=== PATIENT | male | born 2005 | race Caucasian/White ===

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

== ENCOUNTER → 2023-08-28 | Outpatient (CLI) | payer OTHER ==
[2023-09-02 08:34] LABS: APTIMA MEDIA TYPE Urine; C. TRACHOMATIS BY TMA Negative (Negative); N. GONORRHOEAE BY TMA Negative (Negative); SPECIMEN SOURCE Urine
== END ==
LOC: LAB 15:38 → LAB SHORT 15:38
PROVIDERS: Chiropractor
DX: Z72.51 High risk heterosexual behavior (principal)
CPT/HCPCS: 87491; 87591

== ENCOUNTER 2023-10-25 07:33 | Emergency (ER) | payer OTHER ==
[~2023-10-25] VITALS: Ht 180.3 cm; Wt 72.6 kg
[2023-10-25 09:42] VITALS: BP 140/55
== END 2023-10-25 09:43 | disposition home or self-care (01) ==
LOC: ER 07:33
DX: K40.90 Unilateral inguinal hernia, without obstruction or gangrene, not specified as recurrent (principal)
CPT/HCPCS: 99283

== ENCOUNTER 2024-06-10 06:20 | Day surgery (SDC) | payer OTHER ==
[~2024-06-10] VITALS: Ht 177.8 cm; Wt 78.5 kg
[2024-06-10] VITALS (14 sets, daily range): BP systolic 128–181; BP diastolic 53–106
[~2024-06-10 06:20] MED LIST changes: +Bupivacaine 0.5% HCl 5 MG/ML 30MLVIAL ONE
[2024-06-10] MEDS ORDERED: CeFAZolin Sodium 2,000 MG in NS 100 ML IV SCH (06:25)
[2024-06-10] MEDS ORDERED: Lactated Ringer's 1,000 ML IV SCH (06:25)
--- NOTE | 2024-06-10 06:56 | NUR ---
History, Chart, Medications and Allergies reviewed before start of procedure. Lungs clear T/O to Auscultation. Pre-Op teaching done. Pt verbalizes understanding. Patient States Post-Procedure ride home has been arranged. Patient reports completing Chlorhexadine shower X2 prior to admission to hospital. Patient confirms NPO status and agrees with scheduled surgery.
[2024-06-10] MEDS ORDERED: propofoL 20 ML IV ONE (07:08)
[2024-06-10] MEDS ORDERED: FentaNYL Citrate 50 MCG/ML 2 ML Injection ONE ×2 (07:09→09:28)
[2024-06-10] MEDS ORDERED: Midazolam HCl 1MG / ML 2ML Vial ONE (07:09)
[2024-06-10] MEDS ORDERED: Bupivacaine 0.5% HCl 5 MG/ML 30MLVIAL ONE (07:14)
[2024-06-10] MEDS ORDERED: Ketorolac Tromethamine 30mg Vial ONE (07:31)
[2024-06-10] MEDS ORDERED: Ondansetron HCl 2 MG / ML 2ML Vial ONE ×2 (07:31→09:22)
[2024-06-10] MEDS ORDERED: Dexamethasone Sod Phos 10 MG/ML 1ML VIAL ONE (07:31)
[2024-06-10] MEDS ORDERED: Rocuronium Bromide 10 MG/ML 5ML Injection IV ONE (08:54)
[2024-06-10] MEDS ORDERED: Labetalol HCL 5 MG/ML 4ML Injection (Single Dose) ONE (08:54)
[2024-06-10] MEDS ORDERED: Sugammadex Sodium 200 MG/2ML SDV (100 MG/ML) ONE (08:55)
[2024-06-10] MEDS ORDERED: OxyCODONE 5 mg/Acetamin 325 mg TABLET PO PRN (09:20)
--- NOTE | 2024-06-10 09:46 | NUR ---
PT TO DAY SURGERY STEP DOWN FROM PACU WITH HERNIA REPAIR; BEDSIDE REPORT RECEIVED. PT IS AWAKE, ALERT AND ORIENTED; ABLE TO MOVE SELF IN BED. VSS. AFEBRILE. PT C/O NAUSEA. PT HAS 3 ABD INCISIONS THAT ARE CLOSED WITH EXOFIN AND ARE C/D/I. COLD WASHCLOTH TO PT FOREHEAD AND LIGHTS DIMMED.
[2024-06-10] MEDS ORDERED: Prochlorperazine Edisylate 10 mg Vial ONE (09:50)
--- NOTE | 2024-06-10 10:03 | NUR ---
PT RESTING, FEELING LESS NAUSEATED. INCISIONS REMAIN C/D/I. PT DECLINES PO FLUIDS.
--- NOTE | 2024-06-10 10:06 | NUR ---
ICE PACK GIVEN TO PT
--- NOTE | 2024-06-10 10:50 | NUR ---
PT AWAKE, TOLERATING PO FLUIDS AND FEELING WELL. DECLINES PAIN MEDICATION. Discharge instructions reviewed with patient. Patient verbalizes understanding. Copy given to patient to take home. Patient States Post-Procedure ride home has been arranged.
--- NOTE | 2024-06-10 11:09 | NUR ---
Patient up to Ambulate independently. Gait steady. Discharged via wheelchair to private car for ride home.
== END 2024-06-10 11:11 | disposition home or self-care (01) ==
LOC: ORSCMMR 06:20
PROVIDERS: Surgery
PROC: 0YU54JZ Supplement Right Inguinal Region with Synthetic Substitute, Percutaneous Endoscopic Approach (ICD-10-PCS; principal; 2024-06-10 07:30)
PROC: 0YQ74ZZ Repair Right Femoral Region, Percutaneous Endoscopic Approach (ICD-10-PCS; principal; 2024-06-10 07:30)
PROC: 8E0W4CZ Robotic Assisted Procedure of Trunk Region, Percutaneous Endoscopic Approach (ICD-10-PCS; principal; 2024-06-10 07:30)
PROC: 3E0T3BZ Introduction of Anesthetic Agent into Peripheral Nerves and Plexi, Percutaneous Approach (ICD-10-PCS; principal; 2024-06-10 07:30)
DX: K40.30 Unilateral inguinal hernia, with obstruction, without gangrene, not specified as recurrent (principal); K41.30 Unilateral femoral hernia, with obstruction, without gangrene, not specified as recurrent; K66.0 Peritoneal adhesions (postprocedural) (postinfection)
CPT/HCPCS: C1781; J0690; J0780; J1100; J1885; J2250; J2405; J2704; J3010; J7120